=== PATIENT | male | born 1985 | race Two or more races ===

== ENCOUNTER 2021-11-20 19:47 | Emergency (ER) | payer SELFPAY ==
[~2021-11-20] VITALS: Ht 167.6 cm; Wt 68.0 kg
[2021-11-20 19:59] VITALS: BP 138/72
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
--- NOTE | 2021-11-20 21:52 | NUR ---
BS NOTED 99
--- NOTE | 2021-11-20 22:10 | NUR ---
Patient discharged to home in stable condition. Written and verbal after care instructions given. Patient verbalizes understanding of instruction. Pt ambulatory with a steady gait
[2021-11-20] MEDS ORDERED: METF-440 PO (22:21)
[2021-11-20] MEDS ORDERED: CEPH500T PO (22:22)
[2021-11-20] MEDS ORDERED: HYDROCODONE/APAP 5/325MG TABLET PO ONE (22:30)
== END 2021-11-20 22:15 | disposition home or self-care (01) ==
LOC: ER 19:55
DX: L03.116 Cellulitis of left lower limb (principal); L03.115 Cellulitis of right lower limb; F15.10 Other stimulant abuse, uncomplicated; F10.10 Alcohol abuse, uncomplicated; F17.200 Nicotine dependence, unspecified, uncomplicated; Z59.00 Homelessness unspecified; Z60.2 Problems related to living alone; Z79.84 Long term (current) use of oral hypoglycemic drugs; Z79.899 Other long term (current) drug therapy; Y90.9 Presence of alcohol in blood, level not specified
CPT/HCPCS: 82962-TC